=== PATIENT | female | born 1935 | race Caucasian/White ===

== ENCOUNTER 2017-09-15 10:55 | Inpatient (IN) | payer MEDICARE, SELFPAY ==
[2017-09-15] VITALS (21 sets, daily range): BP systolic 90–149; BP diastolic 47–94; PULSE 65–106; RESP 17–28; TEMP 36.7–38.5; O2SAT 81–99; BMI 20.5; BMI 20.9; BMI 21.0
--- NOTE | 2017-09-15 11:07 | RAD_ITS ---
STUDY: X-RAY CHEST REASON FOR EXAM: Female, 82 years old. Short of breath TECHNIQUE: Single AP portable view of the chest. COMPARISON: None. FINDINGS: The lungs are hyperexpanded. There are coarsened interstitial markings suggestive of moderate chronic fibrosis. Cannot exclude congestion and pulmonary edema. More focal density seen in the mid left lung measuring 3.6 cm, which could be infiltrate or mass. CT with contrast recommended. No gross effusions. Normal size heart. Normal mediastinum and candis. Normal visualized pulmonary arteries. Normal visualized aortic arch and descending thoracic aorta. Normal visualized thoracic spine. Normal visualized ribs, clavicles, and shoulders. There is no demonstrated abnormality of the visualized soft tissue structures of the upper abdomen. RAD/Chest 1 View (Portable) IMPRESSION: COPD. Interstitial prominence which could be fibrosis and/or congestion/edema. Focal density in the mid left lung which or mass is possible and CT scan with contrast is recommended. Electronically Signed: Nelson Wallace MD at 11:46 EDT , Service support ,
--- NOTE | 2017-09-15 11:08 | EKG12_ITS ---
Test Reason : SOB Blood Pressure : / mmHG Vent. Rate : 076 BPM Atrial Rate : 069 BPM P-R Int : 000 ms QRS Dur : 086 ms QT Int : 380 ms P-R-T Axes : 000 -55 091 degrees QTc Int : 427 ms Atrial fibrillation Left anterior fascicular block Nonspecific ST and T wave abnormality Abnormal ECG Confirmed by SHALINI BURT, RICARDO ([id number]), loan expeditor HALLEY BUI ([id number]) on 09/20/2017 2:12:59 PM Referred By: WILI Confirmed By:RICARDO LOYA MD
--- NOTE | 2017-09-15 11:29 | NURSING ---
NO OLD EKGS
[2017-09-15] MEDS: Ipratropium/Albuterol Sulfate 3 ML AMPUL.NEB INHALATION ×3 (11:30→23:28)
[2017-09-15 11:51] LABS: Absolute Lymphocyte Count 0.37 X10^3/ul (0.83-4.51); Absolute Neutrophil Count 3.3 X10^3/uL (2.0-7.7); Basophil# 0.03 X10^3/uL; Basophil% 0.7 % (0-1); Eosinophil# 0.01 X10^3/uL; Eosinophils% 0.2 % (0-5); Hematocrit 26.7 % (37-47); Hemoglobin 8.5 g/dl (12.0-15.0); Lymphocyte # 0.37 X10^3/ul (4.0); Lymphocyte % 8.5 % (19-41); Mean Corp Hgb Conc 31.8 g/gl (32-36); Mean Corpuscular Hgb 33.3 pg (27.0-32.0); Mean Corpuscular Volume 104.7 fL (81-99); Mean Platelet Vol. 11.6 fl (6.2-12.0); Monocyte# 0.59 X10^3/uL; Monocyte% 13.6 % (0-10); Neutrophil # 3.29 X10^3/uL (2.7-7.7); Neutrophil % 76.1 % (47-70); Platelet Count 86 K/mm3 (150-450); RBC Distribution Width CV 23.4 % (11.6-14.6); RBC Distribution Width SD 81.8 fl (35.1-43.9); Red Blood Count 2.55 M/mm3 (4.2-5.4); White Blood Count 4.3 K/mm3 (4.4-11.0)
[2017-09-15 11:52] LABS: Differential Indicated SCAN CRITERIA MET; POSITIVE COUNT NO; POSITIVE DIFFERENTIAL YES; POSITIVE MORPHOLOGY YES
[2017-09-15 12:09] LABS: Anion Gap 7 (5-15); BUN 19 mg/dL (7-18); BUN/Creat Ratio 21.8 RATIO (10-20); Calcium,Total 8.1 mg/dL (8.5-10.1); Chloride 106 mmol/L (98-107); Creatinine, Serum 0.87 mg/dL (0.55-1.02); EST Glomerular Filtration Rate 66 mL/min (>60); Est Glom Filt Rate - Afr Amer 80 mL/min (>60); Estimated Creatinine Clearance 45.96 ml/min; Glucose 121 mg/dL (74-106); Potassium 4.3 mmol/L (3.5-5.1); Sodium Level 139 mmol/L (136-145)
--- NOTE | 2017-09-15 12:11 | CT_ITS ---
STUDY: CTA CHEST REASON FOR EXAM: Female, 82 years old. Dyspnea RADIATION DOSAGE (If Supplied By Facility): CTDIvol = ( 8.78 ) mGy, DLP = ( 188.14 ) mGycm TECHNIQUE: The examination was performed with the intravenous administration of 75 ml of Isovue 370 contrast material. Post-processing of the angiographic images was performed, with multiplanar reformation and 3D reconstruction. Individualized dose optimization techniques were used for this CT. COMPARISON: None. FINDINGS: Normal enhancement of the main pulmonary artery and right and left pulmonary arteries. Normal enhancement of the bilateral peripheral pulmonary arteries. There is no demonstrated pulmonary embolism. Normal thoracic aorta and visualized great vessels. There is no demonstrated aortic dissection. There is moderate cardiomegaly. There are calcifications of the coronary arteries. Normal mediastinum. Normal hilar regions. Normal visualized trachea and bronchi. 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 There is atelectasis and possibly infiltrate in the right lower lobe. There is infiltrate or mass in the right upper lobe just beyond the hilum, approximately 4.7 cm. Small to moderate right pleural effusion. Trace left pleural effusion. Normal chest wall structures. Normal osseous structures. Normal visualized upper abdomen. CT/CTA Chest W/WO Contrast IMPRESSION: No evidence for PE. Severe fibrotic COPD. [id number] right pleural effusion. Probable infiltrate in the right lung base in the mid left lung. Cannot exclude mass in the mid left lung. Electronically Signed: Nelson Wallace MD at 13:21 EDT , Service support ,
[2017-09-15 12:12] LABS: Anisocytosis 2+; Macrocytosis 2+; Polychromasia 1+
[2017-09-15] MEDS: 0.9% Normal Saline 1,000 ML 1000 ML IV (12:18)
[2017-09-15 12:26] LABS: BNP,B-Type NATRIURETIC PEPTIDE 409.4 pg/mL (0-100)
[2017-09-15] MEDS: Piperacil/Tazobactam 4.5 GM in NS100 MBP IV (13:20)
--- NOTE | 2017-09-15 14:02 | ED.VISSUMM ---
- ER Visit Summary Date of Service: 09/15/17 Chief Complaint: [Shortness of breath] History of Present Illness: The patient is a 82 F [presents to the emergency department with complaint of shortness of breath that started yesterday. Patient's had a cough for about a week however. Patient drove yesterday for 12 hours from [place] to visit family up here. Patient over the last several months has had multiple admissions for lung infections. Patient also has had some rectal bleeding and had colonoscopy about 4 weeks ago that showed AVMs however they were not bleeding at that time. Patient last week had 1 unit of packed red cells transfused as well. Patient's had fever at home up to 102. Patient has a history of COPD, coronary artery disease, CHF, myelodysplastic syndrome, and pneumonia.] Physical Examination: [HEENT-PERRLA, EOMI. Cranial nerves II through XII grossly intact. TMs clear. Mucous membranes moist. No adenopathy. Cardiovascular-regular rate and rhythm without murmur or ectopy Lungs- decreased breath sounds bilaterally with rhonchi and wheezing throughout. Patient has tachypnea. No accessory muscle use or retractions. Abdomen-normoactive bowel sounds, soft, nontender, no rebound or rigidity, no peritoneal signs. Extremities-intact ?4, normal range of motion, normal pulses, atraumatic] Test Results: [EKG obtained showed atrial fibrillation with a ventricular rate of 76 bpm. Patient had some nonspecific ST changes. CBC with differential showed a white count of 4.3, heme globin 8.5, hematocrit 27, platelets 86. Chemistries unremarkable. Troponin was 0.06. Chest x-ray showed focal density mid left lung and recommended obtaining CT scan with IV contrast to evaluate further. CT scan of the chest showed no evidence for PE, severe COPD, moderate right pleural effusion, infiltrate right lung as well as left midlung. Patient was noted to have a 4.7 cm mass in the left lung.] Emergency Department Course and Treatment: [Patient had blood cultures ordered and patient was started on Zosyn and vancomycin. Patient was given albuterol aerosols.] Treatment Plan: [Admit] Disposition: [Admit] Impression: [Healthcare acquired pneumonia] Pleural effusion Pancytopenia Lung mass This note was generated with [employer] dictation software. It may contain incorrect words, spelling, and punctuation that were not noted in review of the chart prior to signing ED Disposition - Plan for ED Patient: Chief Complaint: Shortness of Breath Referrals: [facility] Doctor,Out of [Primary Care Provider] -
--- NOTE | 2017-09-15 14:36 | NURSING ---
129 HCAP WITH LEFT LUNG MASS, MDS ALANNA
--- NOTE | 2017-09-15 15:48 | PCM.HP.STD ---
<Nora Srivastava - Last Filed: 09/15/17 16:52> Problem List (1) MDS (myelodysplastic syndrome) Status: Chronic (2) COPD (chronic obstructive pulmonary disease) Status: Chronic (3) CAD (coronary artery disease) Status: Chronic (4) HTN (hypertension) Status: Chronic (5) HLD (hyperlipidemia) Status: Chronic (6) GI bleed Status: Resolved (7) Anemia Status: Chronic (8) Atrial fibrillation Status: Chronic Qualifiers: Atrial fibrillation type: paroxysmal Qualified Code(s): I48.0 - Paroxysmal atrial fibrillation (9) CHF (congestive heart failure) Status: Chronic Qualifiers: Heart failure type: systolic History of Present Illness Date of Admission: 09/15/17 Chief Complaint: Shortness of breath, cough, fever, weakness. The patient is a 82 year old F who presents to the emergency room with shortness of breath, cough, fever, weakness. Patient states she has not felt well for the past week and has had ongoing cough and increased shortness of breath. She complains of increased shortness of breath while lying flat. Patient states her cough is productive of green sputum. She reports a fever last night of greater than 102. She denies increased swelling or recent weight gain. Patient is visiting from [place]. Family states patient has had recurrent pneumonia/respiratory failure for the past few months. They also report patient has had 8 units of blood products since June 2017 due to GI bleed secondary to AVMs with underlying myelodysplastic syndrome. Patient states she was noted to have abnormal findings on CT of chest at hospital facility in [place]. She is unaware of the specific details. She wears continuous supplemental oxygen at home. She has a past medical history of COPD, CAD status post stent ?4, MDS, hypertension, hyperlipidemia, paroxysmal atrial fibrillation, CHF. Past Medical History Past Medical History (Chronic Problems): Chronic Problems MDS (myelodysplastic syndrome) (Chronic) COPD (chronic obstructive pulmonary disease) (Chronic) CAD (coronary artery disease) (Chronic) HTN (hypertension) (Chronic) HLD (hyperlipidemia) (Chronic) Anemia (Chronic) Atrial fibrillation (Chronic) CHF (congestive heart failure) (Chronic) Allergies TAPE Allergy (Uncoded 09/15/17 10:56) Unknown Home Medications: Ambulatory Orders Medication Instructions Recorded Albuterol Inhaler [Ventolin Hfa 1 puff INHALATION Q6H PRN PRN 09/15/17 (SP)] Ferrous Sulfate 324 mg PO DAILY 09/15/17 Furosemide [Lasix] 20 mg PO DAILY 09/15/17 Ipratropium/Albuterol Respimat 1 puff INHALATION BID 09/15/17 [Combivent Respimat Inhal [place]] Losartan Potassium 100 mg PO DAILY 09/15/17 Metoprolol Succinate 50 mg PO DAILY 09/15/17 Rosuvastatin Calcium [Crestor] 10 mg PO QODAY 09/15/17 Tiotropium Br/Olodaterol HCl 2 puff IH DAILY 09/15/17 [Stiolto Respimat Inhal [place]] Surgical History: - - Back surgery at the age of 28 Psychiatric History: No pertinent psych hx 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 Lives: With Family Smoking Status: Former smoker Alcohol: Rare Drugs: None - *Family History Maternal History Items: Heart Disease Paternal History Items: - - Alcohol abuse Review of Systems Constitutional: Reports: Chills, Fever, Weakness, Fatigue HEENT: Denies: Head Aches, Sinus Congestion, Sinus Drainage Cardiovascular: Denies: Chest Pain, Edema, Palpitations, Syncope Respiratory: Reports: Cough, Shortness of Breath, Sputum production Gastrointestinal: Denies: Abdominal Pain, Nausea, Vomiting Genitourinary: Denies: Dysuria Musculoskeletal: Denies: Joint Pain, Joint Tenderness Skin: Denies: Rash, Wounds Neurological: Denies: Numbness, Tingling, Focal weakness Psychiatric: Denies: Anxiety, Depression, Homicidal Ideations, Suicidal Ideations Hematologic/ Lymphatic: Denies: Easy Bruising, Easy Bleeding VTE Information - Inpt Only VTE Present on Admission: No VTE Mechan Device Prophylaxis: None VTE Pharm Prophylaxis ordered?: Yes - Physical Exam General: Alert, Oriented x3, Cooperative HEENT: Atraumatic, PERRLA, EOMI, Normocephalic Neck: Supple, No JVD, Negative Carotid Bruits Lungs: Diminished, Rhonchi, Tachypneic, Wheezes Cardiovascular: Normal S1, Normal S2, No murmurs, - - A.fib Abdomen: Bowel Sounds Present, Soft, Non Tender, Non-Distended Extremities: No clubbing, No cyanosis, No edema, Capillary Refill Less than 3 Seconds Skin: No rashes, No breakdown, - - Chronic skin changes bilateral lower extremities. Musculoskeletal: No Tenderness to Palpation of Joints or Extremities Neurological: Cranial nerves II-XII grossly intact, Neuro grossly intact Psych/Mental Status: Normal Affect, Appropriate Vital Signs Temp Pulse Resp BP Pulse Ox 100.0 F H 89 19 H 127/76 H 95 09/15/17 12:29 09/15/17 15:34 09/15/17 14:52 09/15/17 14:52 09/15/17 14:52 Oxygen Flow Rate (L/min) 4 Oxygen Delivery Method Nasal Cannula Assessment/Plan 1. Acute on chronic hypoxic respiratory failure-multifactorial secondary to acute on chronic CHF and healthcare acquired pneumonia. Patient notes hospitalization for recurrent pneumonia and respiratory failure over the past few months in [place] where patient resides. Patient chronically wears supplemental oxygen. Continue supplemental oxygen to maintain O2 at or above 90%. 2. Healthcare acquired pneumonia-negative for influenza. Blood cultures pending. Sputum culture sent, pending. Obtain urine for strep and Legionella. Patient was started on Zosyn and vancomycin in ER, continue. Albuterol and DuoNeb aerosols. IS/PEP. Mucinex 1200 mg p.o. twice daily. Tylenol as needed for fever. CTA of chest showed no evidence of PE. Severe fibrotic COPD. Small to moderate right pleural effusion. Probable infiltrate in the right lung base and the mid left lung. Infiltrate or mass noted in the right upper lobe measuring approximately 4.7 cm. Patient states a lung mass has been discussed with her at outside facility, however she is unaware of details. She was to continue follow-up with repeat imaging. 3. Acute on chronic CHF-unknown what subtype. Request records from facility in [place]. Patient believes her most recent EF was 45%. CT of chest as noted above. BNP on admission 409. Begin IV Lasix 40 mg twice daily. Strict I&O. Daily weight. 4. Paroxysmal atrial fibrillation-EKG in emergency room showed atrial fibrillation with a rate of 76. Patient reports she has history of atrial fibrillation. Not on anticoagulation due to history of GI bleed secondary to AVM. Continue metoprolol. Rate controlled. 5. COPD-no acute exacerbation. Albuterol and DuoNeb aerosols. Continue supplemental oxygen to maintain O2 at or above 90%. 6. CAD-continue statin, metoprolol. Not on aspirin given recent GI bleed. Troponin 0.06 on admission. 7. Hypertension-stable, continue home regimen of metoprolol, losartan, Lasix. 8. Hyperlipidemia-continue statin. 9. Chronic iron deficiency anemia-with recent blood loss anemia secondary to AVM. Colonoscopy in August at facility in [place] was reported to show AVM. Patient required blood transfusion at that time. She reported small amount of rectal bleeding the past few days. Continue to monitor. Monitor CBC. Continue home iron supplementation. 10. Pancytopenia secondary to myelodysplastic syndrome DVT prophylaxis-SCDs. Pharmacologic prophylaxis contraindicated due to recent GI bleed. Code status: DNR-CCA, patient states no CPR This patient was seen by ADINA AnthonyC under the supervision of Dr. Horton. <Yaron Horton - Last Filed: 09/15/17 17:48> History of Present Illness Seen and examined. She has known history of COPD, chronic fibrosis lung with scarring, right lung mass and congestive heart failure, coronary artery disease status post stent and MDS with pancytopenia. She lives in [place] and visiting here. She has clinical symptoms of pneumonia including high fever last night, cough with sputum and tachypnea and shortness of breath for about 1 week. About a week ago she also received blood transfusion. She has a history of A. fib but she is not on anticoagulant because of history of MDS. [] Past Medical History Allergies TAPE Allergy (Uncoded 09/15/17 10:56) Unknown Review of Systems Constitutional: Reports: Chills, Fever - Physical Exam Lungs: Diminished, Rhonchi, Short of Breath, Tachypneic, Using Accessory Muscles, Wheezes Vital Signs Temp Pulse Resp BP Pulse Ox 101.3 F H 82 28 H 124/63 H 91 09/15/17 16:26 09/15/17 16:26 09/15/17 16:26 09/15/17 16:26 09/15/17 16:26 Oxygen Flow Rate (L/min) 4 Oxygen Delivery Method Nasal Cannula Weight: 129 lb 13.636 oz Body Mass Index (BMI) 20.9 Laboratory Tests Past 24 Hrs 09/15/17 09/15/17 09/15/17 15:58 15:58 17:25 PT 16.3 H INR 1.3 APTT 38.5 H Lactic Acid 1.2 Troponin I Pending Assessment/Plan This patient was seen in conjunction with Nora LEVY. I have independently interviewed and examined the patient and reviewed pertinent history, examination findings, laboratory and plan of management. I have reviewed the note and agree with the documented findings with the few additional points. In brief, patient is admitted for acute on chronic hypoxic respiratory failure, multifactorial secondary to COPD, chronic fibrosis and lung scarring, atelectasis bilateral pleural effusion and probably exacerbated by healthcare acid pneumonia. She has also been told in the past that she has a right lung mass and as per her, the mass is stable. She is on IV vancomycin and Zosyn. We will try to get her medical record from [place]. She is DNR CC arrest. I have discussed my assessment with [employer] MACHINE [employer]PA[employer] SUPERVIS[employer]ora and orders have been reviewed. Code Visit Inpatient E&M: 84364 Init Hosp L3
--- NOTE | 2017-09-15 15:57 | HP.PCM_ITS ---
<Nora Srivastava - Last Filed: 09/15/17 16:52> Problem List (1) MDS (myelodysplastic syndrome) Status: Chronic (2) COPD (chronic obstructive pulmonary disease) Status: Chronic (3) CAD (coronary artery disease) Status: Chronic (4) HTN (hypertension) Status: Chronic (5) HLD (hyperlipidemia) Status: Chronic (6) GI bleed Status: Resolved (7) Anemia Status: Chronic (8) Atrial fibrillation Status: Chronic Qualifiers: Atrial fibrillation type: paroxysmal Qualified Code(s): I48.0 - Paroxysmal atrial fibrillation (9) CHF (congestive heart failure) Status: Chronic Qualifiers: Heart failure type: systolic History of Present Illness Date of Admission: 09/15/17 Chief Complaint: Shortness of breath, cough, fever, weakness. The patient is a 82 year old F who presents to the emergency room with shortness of breath, cough, fever, weakness. Patient states she has not felt well for the past week and has had ongoing cough and increased shortness of breath. She complains of increased shortness of breath while lying flat. Patient states her cough is productive of green sputum. She reports a fever last night of greater than 102. She denies increased swelling or recent weight gain. Patient is visiting from [place]. Family states patient has had recurrent pneumonia/respiratory failure for the past few months. They also report patient has had 8 units of blood products since June 2017 due to GI bleed secondary to AVMs with underlying myelodysplastic syndrome. Patient states she was noted to have abnormal findings on CT of chest at hospital facility in [place]. She is unaware of the specific details. She wears continuous supplemental oxygen at home. She has a past medical history of COPD , CAD status post stent ?4, MDS, hypertension, hyperlipidemia, paroxysmal atrial fibrillation, CHF. Past Medical History Past Medical History (Chronic Problems): Chronic Problems MDS (myelodysplastic syndrome) (Chronic) COPD (chronic obstructive pulmonary disease) (Chronic) CAD (coronary artery disease) (Chronic) HTN (hypertension) (Chronic) HLD (hyperlipidemia) (Chronic) Anemia (Chronic) Atrial fibrillation (Chronic) CHF (congestive heart failure) (Chronic) Allergies TAPE Allergy (Uncoded 09/15/17 10:56) Unknown Home Medications: Ambulatory Orders Medication Instructions Recorded Albuterol Inhaler [Ventolin Hfa 1 puff INHALATION Q6H PRN PRN 09/15/17 (SP)] Ferrous Sulfate 324 mg PO DAILY 09/15/17 Furosemide [Lasix] 20 mg PO DAILY 09/15/17 Ipratropium/Albuterol Respimat 1 puff INHALATION BID 09/15/17 [Combivent Respimat Inhal [place]] Losartan Potassium 100 mg PO DAILY 09/15/17 Metoprolol Succinate 50 mg PO DAILY 09/15/17 Rosuvastatin Calcium [Crestor] 10 mg PO QODAY 09/15/17 Tiotropium Br/Olodaterol HCl 2 puff IH DAILY 09/15/17 [Stiolto Respimat Inhal [place]] Surgical History: - - Back surgery at the age of 28 Psychiatric History: No pertinent psych hx 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 PROGRAM MANAGER history Lives: With Family Smoking Status: Former smoker Alcohol: Rare Drugs: None - *Family History Maternal History Items: Heart Disease Paternal History Items: - - Alcohol abuse Review of Systems Constitutional: Reports: Chills, Fever, Weakness, Fatigue HEENT: Denies: Head Aches, Sinus Congestion, Sinus Drainage Cardiovascular: Denies: Chest Pain, Edema, Palpitations, Syncope Respiratory: Reports: Cough, Shortness of Breath, Sputum production Gastrointestinal: Denies: Abdominal Pain, Nausea, Vomiting Genitourinary: Denies: Dysuria Musculoskeletal: Denies: Joint Pain, Joint Tenderness Skin: Denies: Rash, Wounds Neurological: Denies: Numbness, Tingling, Focal weakness Psychiatric: Denies: Anxiety, Depression, Homicidal Ideations, Suicidal Ideations Hematologic/ Lymphatic: Denies: Easy Bruising, Easy Bleeding VTE Information - Inpt Only VTE Present on Admission: No VTE Mechan Device Prophylaxis: None VTE Pharm Prophylaxis ordered?: Yes - Physical Exam General: Alert, Oriented x3, Cooperative HEENT: Atraumatic, PERRLA, EOMI, Normocephalic Neck: Supple, No JVD, Negative Carotid Bruits Lungs: Diminished, Rhonchi, Tachypneic, Wheezes Cardiovascular: Normal S1, Normal S2, No murmurs, - - A.fib Abdomen: Bowel Sounds Present, Soft, Non Tender, Non-Distended Extremities: No clubbing, No cyanosis, No edema, Capillary Refill Less than 3 Seconds Skin: No rashes, No breakdown, - - Chronic skin changes bilateral lower extremities. Musculoskeletal: No Tenderness to Palpation of Joints or Extremities Neurological: Cranial nerves II-XII grossly intact, Neuro grossly intact Psych/Mental Status: Normal Affect, Appropriate Vital Signs Temp Pulse Resp BP Pulse Ox 100.0 F H 89 19 H 127/76 H 95 09/15/17 12:29 09/15/17 15:34 09/15/17 14:52 09/15/17 14:52 09/15/17 14:52 Oxygen Flow Rate (L/min) 4 Oxygen Delivery Method Nasal Cannula Assessment/Plan 1. Acute on chronic hypoxic respiratory failure-multifactorial secondary to acute on chronic CHF and healthcare acquired pneumonia. Patient notes hospitalization for recurrent pneumonia and respiratory failure over the past few months in [place] where patient resides. Patient chronically wears supplemental oxygen. Continue supplemental oxygen to maintain O2 at or above 90 %. 2. Healthcare acquired pneumonia-negative for influenza. Blood cultures pending. Sputum culture sent, pending. Obtain urine for strep and Legionella. Patient was started on Zosyn and vancomycin in ER, continue. Albuterol and DuoNeb aerosols. IS/PEP. Mucinex 1200 mg p.o. twice daily. Tylenol as needed for fever. CTA of chest showed no evidence of PE. Severe fibrotic COPD. Small to moderate right pleural effusion. Probable infiltrate in the right lung base and the mid left lung. Infiltrate or mass noted in the right upper lobe measuring approximately 4.7 cm. Patient states a lung mass has been discussed with her at outside facility, however she is unaware of details. She was to continue follow-up with repeat imaging. 3. Acute on chronic CHF-unknown what subtype. Request records from facility in [place]. Patient believes her most recent EF was 45%. CT of chest as noted above. BNP on admission 409. Begin IV Lasix 40 mg twice daily. Strict I&O. Daily weight. 4. Paroxysmal atrial fibrillation-EKG in emergency room showed atrial fibrillation with a rate of 76. Patient reports she has history of atrial fibrillation. Not on anticoagulation due to history of GI bleed secondary to AVM. Continue metoprolol. Rate controlled. 5. COPD-no acute exacerbation. Albuterol and DuoNeb aerosols. Continue supplemental oxygen to maintain O2 at or above 90%. 6. CAD-continue statin, metoprolol. Not on aspirin given recent GI bleed. Troponin 0.06 on admission. 7. Hypertension-stable, continue home regimen of metoprolol, losartan, Lasix. 8. Hyperlipidemia-continue statin. 9. Chronic iron deficiency anemia-with recent blood loss anemia secondary to AVM. Colonoscopy in August at facility in [place] was reported to show AVM. Patient required blood transfusion at that time. She reported small amount of rectal bleeding the past few days. Continue to monitor. Monitor CBC. Continue home iron supplementation. 10. Pancytopenia secondary to myelodysplastic syndrome DVT prophylaxis-SCDs. Pharmacologic prophylaxis contraindicated due to recent GI bleed. Code status: DNR-CCA, patient states no CPR This patient was seen by ADINA AnthonyC under the supervision of Dr. Horton. <Yaron Horton - Last Filed: 09/15/17 17:48> History of Present Illness Seen and examined. She has known history of COPD, chronic fibrosis lung with scarring, right lung mass and congestive heart failure, coronary artery disease status post stent and MDS with pancytopenia. She lives in [place] and visiting here. She has clinical symptoms of pneumonia including high fever last night, cough with sputum and tachypnea and shortness of breath for about 1 week. About a week ago she also received blood transfusion. She has a history of A. fib but she is not on anticoagulant because of history of MDS. [] Past Medical History Allergies TAPE Allergy (Uncoded 09/15/17 10:56) Unknown Review of Systems Constitutional: Reports: Chills, Fever - Physical Exam Lungs: Diminished, Rhonchi, Short of Breath, Tachypneic, Using Accessory Muscles , Wheezes Vital Signs Temp Pulse Resp BP Pulse Ox 101.3 F H 82 28 H 124/63 H 91 09/15/17 16:26 09/15/17 16:26 09/15/17 16:26 09/15/17 16:26 09/15/17 16:26 Oxygen Flow Rate (L/min) 4 Oxygen Delivery Method Nasal Cannula Weight: 129 lb 13.636 oz Body Mass Index (BMI) 20.9 Laboratory Tests Past 24 Hrs 09/15/17 09/15/17 09/15/17 15:58 15:58 17:25 PT 16.3 H INR 1.3 APTT 38.5 H Lactic Acid 1.2 Troponin I Pending Assessment/Plan This patient was seen in conjunction with Nora LEVY. I have independently interviewed and examined the patient and reviewed pertinent history, examination findings, laboratory and plan of management. I have reviewed the note and agree with the documented findings with the few additional points. In brief, patient is admitted for acute on chronic hypoxic respiratory failure, multifactorial secondary to COPD, chronic fibrosis and lung scarring, atelectasis bilateral pleural effusion and probably exacerbated by healthcare acid pneumonia. She has also been told in the past that she has a right lung mass and as per her, the mass is stable. She is on IV vancomycin and Zosyn. We will try to get her medical record from [place]. She is DNR CC arrest. I have discussed my assessment with SERVICE TEAM LEADERNora and orders have been reviewed. Code Visit Inpatient E&M: 25599 Init Hosp L3
[2017-09-15 16:15] LABS: International Normalized Ratio 1.3; Prothrombin Time (Protime)PT. 16.3 SECONDS (11.7-14.9)
[2017-09-15 16:16] LABS: Partial Thromboplast Time 38.5 Seconds (24.1-36.2)
[2017-09-15 16:43] LABS: Lactic Acid 1.2 mmol/L (0.4-2.0)
[2017-09-15] MEDS: Acetaminophen 325 MG Tablet 650 MG PO (17:01)
[2017-09-15] MEDS: Ferrous Sulfate 325 MG Tablet PO (17:32)
[2017-09-15] MEDS: Furosemide 40 MG/4 ML Vial IV (17:32)
[2017-09-15] MEDS: guaiFENesin 600 MG Tablet 1200 MG PO (18:19)
[2017-09-15] MEDS: MELATONIN 10 MG TABLET PO (21:53)
[2017-09-15 22:34] LABS: Magnesium 1.9 mg/dL (1.6-2.6)
[2017-09-16] VITALS (17 sets, daily range): BP systolic 103–135; BP diastolic 47–73; PULSE 62–92; RESP 16–20; TEMP 36.4–36.8; O2SAT 94–100
[2017-09-16 03:03] LABS: Hematocrit 24.7 % (37-47); Hemoglobin 7.8 g/dl (12.0-15.0); Mean Corp Hgb Conc 31.6 g/gl (32-36); Mean Corpuscular Hgb 33.3 pg (27.0-32.0); Mean Corpuscular Volume 105.6 fL (81-99); Mean Platelet Vol. 11.6 fl (6.2-12.0); RBC Distribution Width CV 23.6 % (11.6-14.6); RBC Distribution Width SD 85.6 fl (35.1-43.9); Red Blood Count 2.34 M/mm3 (4.2-5.4); White Blood Count 3.6 K/mm3 (4.4-11.0)
[2017-09-16 03:12] LABS: Platelet Count 44 K/mm3 (150-450); Scan Indicated on CBC? Y/N YES- FLAGS NOTED
[2017-09-16 03:19] LABS: Anion Gap 6 (5-15); BUN 16 mg/dL (7-18); BUN/Creat Ratio 18.6 RATIO (10-20); Calcium,Total 7.8 mg/dL (8.5-10.1); Chloride 104 mmol/L (98-107); Creatinine, Serum 0.86 mg/dL (0.55-1.02); EST Glomerular Filtration Rate 67 mL/min (>60); Est Glom Filt Rate - Afr Amer 81 mL/min (>60); Estimated Creatinine Clearance 46.09 ml/min; Glucose 97 mg/dL (74-106); Potassium 3.7 mmol/L (3.5-5.1); Sodium Level 137 mmol/L (136-145)
[2017-09-16] MEDS: Acetaminophen 325 MG Tablet 650 MG PO (03:27)
[2017-09-16 03:39] LABS: Differential Comment SCAN
[2017-09-16] MEDS: Ipratropium/Albuterol Sulfate 3 ML AMPUL.NEB INHALATION ×4 (07:39→23:40)
[2017-09-16] MEDS: Furosemide 40 MG/4 ML Vial IV ×2 (09:19→18:41)
[2017-09-16] MEDS: Famotidine 20 MG Tablet PO ×2 (09:20→22:15)
[2017-09-16] MEDS: guaiFENesin 600 MG Tablet 1200 MG PO ×2 (09:20→22:15)
[2017-09-16] MEDS: Ferrous Sulfate 325 MG Tablet PO (09:23)
[2017-09-16] MEDS: 0.9% NaCl Peripheral Flush Adult/Peds IV ×3 (09:24→18:41)
[2017-09-16] MEDS: Metoprolol(XL)Succ 50 MG Tablet PO (11:18)
--- NOTE | 2017-09-16 13:05 | PCM.RX.CS ---
Consult Pharmacy has been consulted to manage selected antiobiotic: Vancomycin Type of Consult: Follow-up Suspected Infection: Pneumonia Prior Doses of Antibiotics Received/Current Regimen: VANCOMYCIN 1000MG IV X1 IN ED @1447 Labs: Sodium 137 mmol/L (136-145) 09/16/17 02:23 Potassium 3.7 mmol/L (3.5-5.1) 09/16/17 02:23 Chloride 104 mmol/L (98-107) 09/16/17 02:23 Carbon Dioxide 27.0 mmol/L (21.0-32.0) 09/16/17 02:23 Anion Gap 6 (5-15) 09/16/17 02:23 BUN 16 mg/dL (7-18) 09/16/17 02:23 Creatinine 0.86 mg/dL (0.55-1.02) 09/16/17 02:23 Est GFR (MDRD) Af Amer 81 mL/min (>60) 09/16/17 02:23 Est GFR (MDRD) Non-Af 67 mL/min (>60) 09/16/17 02:23 BUN/Creatinine Ratio 18.6 RATIO (10-20) 09/16/17 02:23 Glucose 97 mg/dL (74-106) 09/16/17 02:23 Microbiology: Microbiology 09/15/17 19:20 Urine, Clean Catch Legionella Antigen - Final 09/15/17 19:20 Urine, Clean Catch Streptococcus pneumoniae Antigen (M - Final Weight used for dosin.9 kg Estimated Creatinine Clearance: 46ML/MIN Goal Trough: 15-20 mcg/mL Pharmacy Plan for Drug Dosing: Pharmacy Service will continue to monitor and adjust dosing as required Pharmacy to manage vancomycin per consult for treatment of HCAP. The patient was started on vancomycin yesterday, and was placed on 1g IV Q24hrs. The patient got a 1g dose 08/15/17 @ 1819 (5hrs from ED dose). This sql report writer ordered a random vancomycin level prior to the next dose due to assess how the patient is accumulating the vancomycin. Pending this level, adjustments can be made to the regimen to target a trough of 15-20. PLAN/RECOMMENDATIONS 1. Continue vancomycin 1000mg IV Q24hrs 2. Random trough 09/16/17 @1730 to assess accumulation rate of this patient 3. Pharmacy will continue to monitor and make changes as appropriate
--- NOTE | 2017-09-16 13:25 | CASEMGMT ---
Face to Face with patient for initial transition planning/care coordination assessment. ABBEY SOLIS introduced self and role at [facility], pt voices understanding and consents to assessment at this time. Pt is sitting up on edge of bed in no distress at this time. Pt is A/O x4 at this time and answers all questions appopriately at this time. Care providers, pharmacy, and demographics verified. See attached link. Pt voices no further questions/concerns at this time. Advised pt to ask for CM if any further questions/concerns/needs arise, voices understanding. CM to follow for any further discharge planning/needs. PLAN: [place] ABBEY SOLIS
[2017-09-16 19:04] LABS: Vancomycin, Random Level 13.7 ug/mL (0.0-15.0)
--- NOTE | 2017-09-16 19:52 | PCM.PROGNOTE ---
Subjective: she is feeling better today. Hypotension noted. Oxygen saturation stable with O2 via NC. - Physical Exam General: Alert, Oriented x3 HEENT: Atraumatic, PERRLA, Normocephalic Oral: Moist Mucosa, No Gingival or Mucosal Lesions/ Ulcerations, Dry Mucosa Neck: Supple, No JVD, Negative Carotid Bruits, Negative Hepatojugular Reflux, No Nodes, No Nuchal Rigidity Lungs: No wheeze, No rales, Diminished Cardiovascular: Regular rate, Regular Rhythm, Normal S1, Normal S2, No murmurs, No Ectopic Activity Abdomen: Bowel Sounds Present, Soft, Non Tender, Non-Distended, No Hepato-splenomegaly Extremities: No clubbing, No cyanosis, No edema Skin: No rashes, No breakdown Musculoskeletal: No Tenderness to Palpation of Joints or Extremities, No Muscle Wasting Lymphatic: No Cervical, Supraclavicular, or Inguinal Adenopathy Neurological: Cranial nerves II-XII grossly intact, Neuro grossly intact Psych/Mental Status: Normal Affect Vital Signs Temp Pulse Resp BP Pulse Ox 97.5 F L 67 18 111/68 100 09/16/17 15:38 09/16/17 19:48 09/16/17 19:48 09/16/17 15:38 09/16/17 15:38 Oxygen Flow Rate (L/min) 3 Oxygen Delivery Method Nasal Cannula Weight: 128 lb 1.417 oz Body Mass Index (BMI) 20.9 Intake and Output for Last 24 Hours 09/14/17 09/15/17 09/16/17 23:59 23:59 23:59 Intake Total 904 / 904 738 / 738 Output Total 925 / 925 Balance 904 / 904 -187 / -187 Microbiology Past 72 Hours 09/15/17 19:20 Legionella Antigen - Final Urine, Clean Catch 09/15/17 19:20 Streptococcus pneumoniae Antigen (M - Final Urine, Clean Catch Laboratory Tests Past 24 Hrs 09/15/17 09/15/17 09/16/17 21:42 21:42 02:23 WBC 3.6 L RBC 2.34 L Hgb 7.8 L Hct 24.7 L MCV 105.6 H MCH 33.3 H MCHC 31.6 L RDW 23.6 H RDW Differential 85.6 H Plt Count 44 L* MPV 11.6 Differential Comment SCAN Diff Path Review May foll Sodium Potassium Chloride Carbon Dioxide Anion Gap BUN Creatinine Estim Creat Clear Calc Est GFR (MDRD) Af Amer Est GFR (MDRD) Non-Af BUN/Creatinine Ratio Glucose Calcium Magnesium 1.9 Troponin I 0.10 H Random Vancomycin 09/16/17 09/16/17 09/16/17 02:23 02:23 17:45 WBC RBC Hgb Hct MCV MCH MCHC RDW RDW Differential Plt Count MPV Differential Comment Diff Path Review Sodium 137 Potassium 3.7 Chloride 104 Carbon Dioxide 27.0 Anion Gap 6 BUN 16 Creatinine 0.86 Estim Creat Clear Calc 46.09 Est GFR (MDRD) Af Amer 81 Est GFR (MDRD) Non-Af 67 BUN/Creatinine Ratio 18.6 Glucose 97 Calcium 7.8 L Magnesium Troponin I 0.09 H Random Vancomycin 13.7 Diagnostic Data Chest X-Ray 09/15/17 11:07 IMPRESSION: COPD. Interstitial prominence which could be fibrosis and/or congestion/edema. Focal density in the mid left lung which or mass is possible and CT scan with contrast is recommended. Electronically Signed: Nelson Wallace MD at 11:46 EDT , Service support , Chest CTA 09/15/17 12:11 IMPRESSION: No evidence for PE. Severe fibrotic COPD. [id number] right pleural effusion. Probable infiltrate in the right lung base in the mid left lung. Cannot exclude mass in the mid left lung. Electronically Signed: Nelson Wallace MD at 13:21 EDT , Service support , Medical Necessity - Tobacco Use Smoking Status: Former smoker Tobacco Use: Cigarettes Assessment/Plan Patient is an 82 years old female who was admitted on 09/15/17 for acute on chronic respiratory failure with underling pneumonia, COPD, and CHF. She was having recurrent hospitalization and ED visit for past 3 month with respiratory illness and anemia. She reports that she had multiple transfusion due to myelodysplastic disease. Also, she had pneumonia and upper respiratory infection, presents with fever of 102 this time with green discolored productive cough. She was started on Zosyn and vancomycin empirically, admitted to PCU. She reports that she had CT of chest, which was abnormal in [place] last month. She is not sure if there was instruction for follow up. She denied of any history of cancer in the past. 1. Acute on chronic hypoxic respiratory failure-multifactorial secondary to acute on chronic CHF and healthcare acquired pneumonia. Patient notes hospitalization for recurrent pneumonia and respiratory failure over the past few months in [place] where patient resides. Patient chronically wears supplemental oxygen. Continue supplemental oxygen to maintain O2 at or above 90%. 2. Healthcare acquired pneumonia-negative for influenza. Blood cultures pending. Sputum culture sent, pending. Obtain urine for strep and Legionella. Patient was started on Zosyn and vancomycin in ER, continue. Albuterol and DuoNeb aerosols. IS/PEP. Mucinex 1200 mg p.o. twice daily. Tylenol as needed for fever. CTA of chest showed no evidence of PE. Severe fibrotic COPD. Small to moderate right pleural effusion. Probable infiltrate in the right lung base and the mid left lung. Infiltrate or mass noted in the right upper lobe measuring approximately 4.7 cm. Patient states a lung mass has been discussed with her at outside facility, however she is unaware of details. She was to continue follow-up with repeat imaging. Right mid lung lesion mentioned above is concerning. I had discussed in detail with patient regarding possibility of pathology including malignancy. Record from [place] was reviewed but no mentioning of CT chest. After discussing possible treatment plans, she thought that it would be best to do further work up at home in [place]. If she is more stable, she is planing to go back to home early next week. We sill see how she progress. 3. Acute on chronic CHF-unknown what subtype. Request records from facility in [place]. Patient believes her most recent EF was 45%. CT of chest as noted above. BNP on admission 409. Begin IV Lasix 40 mg twice daily. Strict I&O. Daily weight. 4. Paroxysmal atrial fibrillation-EKG in emergency room showed atrial fibrillation with a rate of 76. Patient reports she has history of atrial fibrillation. Not on anticoagulation due to history of GI bleed secondary to AVM. Continue metoprolol. Rate controlled. 5. COPD-no acute exacerbation. Albuterol and DuoNeb aerosols. Continue supplemental oxygen to maintain O2 at or above 90%. 6. CAD-continue statin, metoprolol. Not on aspirin given recent GI bleed. Troponin 0.06 on admission. 7. Hypertension-stable, continue home regimen of metoprolol, losartan, Lasix. 8. Hyperlipidemia-continue statin. 9. Chronic iron deficiency anemia-with recent blood loss anemia secondary to AVM. Colonoscopy in August at facility in [place] was reported to show AVM. Patient required blood transfusion at that time. She reported small amount of rectal bleeding the past few days. Continue to monitor. Monitor CBC. Continue home iron supplementation. 10. Pancytopenia secondary to myelodysplastic syndrome DVT prophylaxis-SCDs. Pharmacologic prophylaxis contraindicated due to recent GI bleed. Code status: DNR-CCA, patient states no CPR Code Visit Inpatient E&M: 93795 Subs Hosp L3
--- NOTE | 2017-09-16 20:02 | PN_ITS ---
Subjective: she is feeling better today. Hypotension noted. Oxygen saturation stable with O2 via NC. - Physical Exam General: Alert, Oriented x3 HEENT: Atraumatic, PERRLA, Normocephalic Oral: Moist Mucosa, No Gingival or Mucosal Lesions/ Ulcerations, Dry Mucosa Neck: Supple, No JVD, Negative Carotid Bruits, Negative Hepatojugular Reflux, No Nodes, No Nuchal Rigidity Lungs: No wheeze, No rales, Diminished Cardiovascular: Regular rate, Regular Rhythm, Normal S1, Normal S2, No murmurs, No Ectopic Activity Abdomen: Bowel Sounds Present, Soft, Non Tender, Non-Distended, No Hepato- splenomegaly Extremities: No clubbing, No cyanosis, No edema Skin: No rashes, No breakdown Musculoskeletal: No Tenderness to Palpation of Joints or Extremities, No Muscle Wasting Lymphatic: No Cervical, Supraclavicular, or Inguinal Adenopathy Neurological: Cranial nerves II-XII grossly intact, Neuro grossly intact Psych/Mental Status: Normal Affect Vital Signs Temp Pulse Resp BP Pulse Ox 97.5 F L 67 18 111/68 100 09/16/17 15:38 09/16/17 19:48 09/16/17 19:48 09/16/17 15:38 09/16/17 15:38 Oxygen Flow Rate (L/min) 3 Oxygen Delivery Method Nasal Cannula Weight: 128 lb 1.417 oz Body Mass Index (BMI) 20.9 Intake and Output for Last 24 Hours 09/14/17 09/15/17 09/16/17 23:59 23:59 23:59 Intake Total 904 / 904 738 / 738 Output Total 925 / 925 Balance 904 / 904 -187 / -187 Microbiology Past 72 Hours 09/15/17 19:20 Legionella Antigen - Final Urine, Clean Catch 09/15/17 19:20 Streptococcus pneumoniae Antigen (M - Final Urine, Clean Catch Laboratory Tests Past 24 Hrs 09/15/17 09/15/17 09/16/17 21:42 21:42 02:23 WBC 3.6 L RBC 2.34 L Hgb 7.8 L Hct 24.7 L MCV 105.6 H MCH 33.3 H MCHC 31.6 L RDW 23.6 H RDW Differential 85.6 H Plt Count 44 L* MPV 11.6 Differential Comment SCAN Diff Path Review May foll Sodium Potassium Chloride Carbon Dioxide Anion Gap BUN Creatinine Estim Creat Clear Calc Est GFR (MDRD) Af Amer Est GFR (MDRD) Non-Af BUN/Creatinine Ratio Glucose Calcium Magnesium 1.9 Troponin I 0.10 H Random Vancomycin 09/16/17 09/16/17 09/16/17 02:23 02:23 17:45 WBC RBC Hgb Hct MCV MCH MCHC RDW RDW Differential Plt Count MPV Differential Comment Diff Path Review Sodium 137 Potassium 3.7 Chloride 104 Carbon Dioxide 27.0 Anion Gap 6 BUN 16 Creatinine 0.86 Estim Creat Clear Calc 46.09 Est GFR (MDRD) Af Amer 81 Est GFR (MDRD) Non-Af 67 BUN/Creatinine Ratio 18.6 Glucose 97 Calcium 7.8 L Magnesium Troponin I 0.09 H Random Vancomycin 13.7 Diagnostic Data Chest X-Ray 09/15/17 11:07 IMPRESSION: COPD. Interstitial prominence which could be fibrosis and/or congestion/edema. Focal density in the mid left lung which or mass is possible and CT scan with contrast is recommended. Electronically Signed: Nelson Wallace MD at 11:46 EDT , Service support , Chest CTA 09/15/17 12:11 IMPRESSION: No evidence for PE. Severe fibrotic COPD. [id number] right pleural effusion. Probable infiltrate in the right lung base in the mid left lung. Cannot exclude mass in the mid left lung. Electronically Signed: Nelson Wallace MD at 13:21 EDT , Service support , Medical Necessity - Tobacco Use Smoking Status: Former smoker Tobacco Use: Cigarettes Assessment/Plan Patient is an 82 years old female who was admitted on 09/15/17 for acute on chronic respiratory failure with underling pneumonia, COPD, and CHF. She was having recurrent hospitalization and ED visit for past 3 month with respiratory illness and anemia. She reports that she had multiple transfusion due to myelodysplastic disease. Also, she had pneumonia and upper respiratory infection, presents with fever of 102 this time with green discolored productive cough. She was started on Zosyn and vancomycin empirically, admitted to PCU. She reports that she had CT of chest, which was abnormal in [place] last month. She is not sure if there was instruction for follow up. She denied of any history of cancer in the past. 1. Acute on chronic hypoxic respiratory failure-multifactorial secondary to acute on chronic CHF and healthcare acquired pneumonia. Patient notes hospitalization for recurrent pneumonia and respiratory failure over the past few months in [place] where patient resides. Patient chronically wears supplemental oxygen. Continue supplemental oxygen to maintain O2 at or above 90 %. 2. Healthcare acquired pneumonia-negative for influenza. Blood cultures pending. Sputum culture sent, pending. Obtain urine for strep and Legionella. Patient was started on Zosyn and vancomycin in ER, continue. Albuterol and DuoNeb aerosols. IS/PEP. Mucinex 1200 mg p.o. twice daily. Tylenol as needed for fever. CTA of chest showed no evidence of PE. Severe fibrotic COPD. Small to moderate right pleural effusion. Probable infiltrate in the right lung base and the mid left lung. Infiltrate or mass noted in the right upper lobe measuring approximately 4.7 cm. Patient states a lung mass has been discussed with her at outside facility, however she is unaware of details. She was to continue follow-up with repeat imaging. Right mid lung lesion mentioned above is concerning. I had discussed in detail with patient regarding possibility of pathology including malignancy. Record from [place] was reviewed but no mentioning of CT chest. After discussing possible treatment plans, she thought that it would be best to do further work up at home in [place]. If she is more stable, she is planing to go back to home early next week. We sill see how she progress. 3. Acute on chronic CHF-unknown what subtype. Request records from facility in [place]. Patient believes her most recent EF was 45%. CT of chest as noted above. BNP on admission 409. Begin IV Lasix 40 mg twice daily. Strict I&O. Daily weight. 4. Paroxysmal atrial fibrillation-EKG in emergency room showed atrial fibrillation with a rate of 76. Patient reports she has history of atrial fibrillation. Not on anticoagulation due to history of GI bleed secondary to AVM. Continue metoprolol. Rate controlled. 5. COPD-no acute exacerbation. Albuterol and DuoNeb aerosols. Continue supplemental oxygen to maintain O2 at or above 90%. 6. CAD-continue statin, metoprolol. Not on aspirin given recent GI bleed. Troponin 0.06 on admission. 7. Hypertension-stable, continue home regimen of metoprolol, losartan, Lasix. 8. Hyperlipidemia-continue statin. 9. Chronic iron deficiency anemia-with recent blood loss anemia secondary to AVM. Colonoscopy in August at facility in [place] was reported to show AVM. Patient required blood transfusion at that time. She reported small amount of rectal bleeding the past few days. Continue to monitor. Monitor CBC. Continue home iron supplementation. 10. Pancytopenia secondary to myelodysplastic syndrome DVT prophylaxis-SCDs. Pharmacologic prophylaxis contraindicated due to recent GI bleed. Code status: DNR-CCA, patient states no CPR Code Visit Inpatient E&M: 08776 Subs Hosp L3
[2017-09-16] MEDS: MELATONIN 10 MG TABLET PO (22:15)
[2017-09-17] VITALS (18 sets, daily range): BP systolic 94–131; BP diastolic 48–71; PULSE 56–90; RESP 16–20; TEMP 36.4; O2SAT 96–100
[2017-09-17] MEDS: 0.9% NaCl Peripheral Flush Adult/Peds IV ×2 (03:03→17:27)
[2017-09-17] MEDS: Acetaminophen 325 MG Tablet 650 MG PO ×2 (03:21→21:44)
[2017-09-17] MEDS: Ipratropium/Albuterol Sulfate 3 ML AMPUL.NEB INHALATION ×5 (07:09→22:46)
[2017-09-17 07:44] LABS: Hematocrit 26.1 % (37-47); Hemoglobin 8.3 g/dl (12.0-15.0); Mean Corp Hgb Conc 31.8 g/gl (32-36); Mean Corpuscular Hgb 32.7 pg (27.0-32.0); Mean Corpuscular Volume 102.8 fL (81-99); Mean Platelet Vol. 10.5 fl (6.2-12.0); Platelet Count 42 K/mm3 (150-450); RBC Distribution Width CV 22.4 % (11.6-14.6); RBC Distribution Width SD 78.7 fl (35.1-43.9); Red Blood Count 2.54 M/mm3 (4.2-5.4); White Blood Count 2.6 K/mm3 (4.4-11.0)
[2017-09-17 07:48] LABS: Scan Indicated on CBC? Y/N YES- FLAGS NOTED
[2017-09-17 07:51] LABS: Anion Gap 8 (5-15); BUN 18 mg/dL (7-18); BUN/Creat Ratio 22.9 RATIO (10-20); Calcium,Total 7.8 mg/dL (8.5-10.1); Chloride 101 mmol/L (98-107); Creatinine, Serum 0.79 mg/dL (0.55-1.02); EST Glomerular Filtration Rate 74 mL/min (>60); Est Glom Filt Rate - Afr Amer 90 mL/min (>60); Estimated Creatinine Clearance 37.68 ml/min; Glucose 81 mg/dL (74-106); Potassium 3.3 mmol/L (3.5-5.1); Sodium Level 137 mmol/L (136-145)
[2017-09-17] MEDS: Ferrous Sulfate 325 MG Tablet PO (08:05)
[2017-09-17] MEDS: guaiFENesin 600 MG Tablet 1200 MG PO ×2 (11:05→21:41)
[2017-09-17] MEDS: Metoprolol(XL)Succ 50 MG Tablet PO (11:38)
--- NOTE | 2017-09-17 12:03 | NURSING ---
Notified primary RN
[2017-09-17] MEDS: Furosemide 40 MG/4 ML Vial IV (17:25)
--- NOTE | 2017-09-17 20:58 | PN_ITS ---
Subjective: She feels better today. She is afebrile, cough is better. Her son is here today. - Physical Exam General: Alert, Oriented x3 HEENT: Atraumatic, PERRLA, Normocephalic Oral: Moist Mucosa, No Gingival or Mucosal Lesions/ Ulcerations, Dry Mucosa Neck: Supple, No JVD, Negative Carotid Bruits, Negative Hepatojugular Reflux, No Nodes, No Nuchal Rigidity Lungs: No wheeze, No rales, Diminished Cardiovascular: Regular rate, Regular Rhythm, Normal S1, Normal S2, No murmurs, No Ectopic Activity Abdomen: Bowel Sounds Present, Soft, Non Tender, Non-Distended, No Hepato- splenomegaly Extremities: No clubbing, No cyanosis, No edema Skin: No rashes, No breakdown Musculoskeletal: No Tenderness to Palpation of Joints or Extremities, No Muscle Wasting Lymphatic: No Cervical, Supraclavicular, or Inguinal Adenopathy Neurological: Cranial nerves II-XII grossly intact, Neuro grossly intact Psych/Mental Status: Normal Affect - Physical Exam Vital Signs Temp Pulse Resp BP Pulse Ox 97.5 F L 56 L 18 131/62 H 100 09/17/17 16:15 09/17/17 19:21 09/17/17 19:21 09/17/17 16:15 09/17/17 16:15 Oxygen Flow Rate (L/min) 2.5 Oxygen Delivery Method Nasal Cannula Weight: 123 lb 7.342 oz Body Mass Index (BMI) 20.9 Intake and Output for Last 24 Hours 09/15/17 09/16/17 09/17/17 23:59 23:59 23:59 Intake Total 904 / 904 1223 / 1223 665.6 / 665.6 Output Total 1925 / 1925 800 / 800 Balance 904 / 904 -702 / -702 -134.4 / -134.4 Microbiology Past 72 Hours 09/15/17 19:20 Urine Culture - Preliminary Urine, Clean Catch Culture exhibits no growth. 09/15/17 19:20 Legionella Antigen - Final Urine, Clean Catch 09/15/17 19:20 Streptococcus pneumoniae Antigen (M - Final Urine, Clean Catch Laboratory Tests Past 24 Hrs 09/17/17 09/17/17 07:00 07:00 WBC 2.6 L RBC 2.54 L Hgb 8.3 L Hct 26.1 L MCV 102.8 H MCH 32.7 H MCHC 31.8 L RDW 22.4 H RDW Differential 78.7 H Plt Count 42 L* MPV 10.5 Differential Comment Sodium 137 Potassium 3.3 L Chloride 101 Carbon Dioxide 28.0 Anion Gap 8 BUN 18 Creatinine 0.79 Estim Creat Clear Calc 37.68 Est GFR (MDRD) Af Amer 90 Est GFR (MDRD) Non-Af 74 BUN/Creatinine Ratio 22.9 H Glucose 81 Calcium 7.8 L Medical Necessity - Tobacco Use Smoking Status: Former smoker Tobacco Use: Cigarettes Assessment/Plan Patient is an 82 years old female who was admitted on 09/15/17 for acute on chronic respiratory failure with underling pneumonia, COPD, and CHF. She was having recurrent hospitalization and ED visit for past 3 month with respiratory illness and anemia. She reports that she had multiple transfusion due to myelodysplastic disease. Also, she had pneumonia and upper respiratory infection, presents with fever of 102 this time with green discolored productive cough. She was started on Zosyn and vancomycin empirically, admitted to PCU. She reports that she had CT of chest, which was abnormal in [place] last month. She is not sure if there was instruction for follow up. She denied of any history of cancer in the past. 1. Acute on chronic hypoxic respiratory failure-multifactorial secondary to acute on chronic CHF and healthcare acquired pneumonia. Patient notes hospitalization for recurrent pneumonia and respiratory failure over the past few months in [place] where patient resides. Patient chronically wears supplemental oxygen. Continue supplemental oxygen to maintain O2 at or above 90 %. 2. Healthcare acquired pneumonia-negative for influenza. Blood cultures pending. Sputum culture sent, pending. Obtain urine for strep and Legionella. Patient was started on Zosyn and vancomycin in ER, continue. Albuterol and DuoNeb aerosols. IS/PEP. Mucinex 1200 mg p.o. twice daily. Tylenol as needed for fever. CTA of chest showed no evidence of PE. Severe fibrotic COPD. Small to moderate right pleural effusion. Probable infiltrate in the right lung base and the mid left lung. Infiltrate or mass noted in the right upper lobe measuring approximately 4.7 cm. Patient states a lung mass has been discussed with her at outside facility, however she is unaware of details. She was to continue follow-up with repeat imaging. Right mid lung lesion mentioned above is concerning. I had discussed in detail with patient regarding possibility of pathology including malignancy. Record from [place] was reviewed but no mentioning of CT chest. I had discussed with her son on 09/17. According to him, they are aware of density for some years, following the lesion regularly. However, it appears that she was admitted for pneumonia a couple of times in past few month which raises some questions. Patient and her son feel more comfortable to follow up with her regular physician for lung density. 3. Acute on chronic CHF, likely with mild to moderate systolic dysfunction- unknown what subtype. Request records from facility in [place]. Patient believes her most recent EF was 45%. CT of chest as noted above. BNP on admission 409. Begin IV Lasix 40 mg twice daily. Strict I&O. Daily weight. 4. Paroxysmal atrial fibrillation-EKG in emergency room showed atrial fibrillation with a rate of 76. Patient reports she has history of atrial fibrillation. Not on anticoagulation due to history of GI bleed secondary to AVM. Continue metoprolol. Rate controlled. 5. COPD-no acute exacerbation. Albuterol and DuoNeb aerosols. Continue supplemental oxygen to maintain O2 at or above 90%. 6. CAD-continue statin, metoprolol. Not on aspirin given recent GI bleed. Troponin 0.06 on admission. 7. Hypertension-stable, continue home regimen of metoprolol, losartan, Lasix. 8. Hyperlipidemia-continue statin. 9. Chronic iron deficiency anemia-with recent blood loss anemia secondary to AVM. Colonoscopy in August at facility in [place] was reported to show AVM. Patient required blood transfusion at that time. She reported small amount of rectal bleeding the past few days. Continue to monitor. Monitor CBC. Continue home iron supplementation. 10. Pancytopenia secondary to myelodysplastic syndrome DVT prophylaxis-SCDs. Pharmacologic prophylaxis contraindicated due to recent GI bleed. Code status: DNR-CCA, patient states no CPR Code Visit Inpatient E&M: 92481 Subs Hosp L3
[2017-09-17] MEDS: MELATONIN 10 MG TABLET PO (21:42)
[2017-09-18] VITALS (8 sets, daily range): BP systolic 97–113; BP diastolic 47–58; PULSE 65–75; RESP 16–18; TEMP 36.2–36.6; O2SAT 92–99
[2017-09-18] MEDS: Ipratropium/Albuterol Sulfate 3 ML AMPUL.NEB INHALATION (02:50)
[2017-09-18 06:53] LABS: Hematocrit 26.6 % (37-47); Hemoglobin 8.4 g/dl (12.0-15.0); Mean Corp Hgb Conc 31.6 g/gl (32-36); Mean Corpuscular Hgb 32.9 pg (27.0-32.0); Mean Corpuscular Volume 104.3 fL (81-99); Mean Platelet Vol. 11.2 fl (6.2-12.0); Platelet Count 52 K/mm3 (150-450); RBC Distribution Width CV 22.3 % (11.6-14.6); RBC Distribution Width SD 79.7 fl (35.1-43.9); Red Blood Count 2.55 M/mm3 (4.2-5.4); White Blood Count 2.6 K/mm3 (4.4-11.0)
[2017-09-18 06:54] LABS: Scan Indicated on CBC? Y/N YES- FLAGS NOTED
[2017-09-18 07:08] LABS: Anion Gap 6 (5-15); BUN 21 mg/dL (7-18); BUN/Creat Ratio 24.6 RATIO (10-20); Calcium,Total 8.1 mg/dL (8.5-10.1); Chloride 103 mmol/L (98-107); Creatinine, Serum 0.85 mg/dL (0.55-1.02); EST Glomerular Filtration Rate 67 mL/min (>60); Est Glom Filt Rate - Afr Amer 82 mL/min (>60); Estimated Creatinine Clearance 43.54 ml/min; Glucose 91 mg/dL (74-106); Potassium 3.8 mmol/L (3.5-5.1); Sodium Level 140 mmol/L (136-145)
[2017-09-18 07:19] LABS: Differential Comment SCAN
[2017-09-18] MEDS: Ferrous Sulfate 325 MG Tablet PO (08:11)
[2017-09-18] MEDS: guaiFENesin 600 MG Tablet 1200 MG PO (09:10)
[2017-09-18] MEDS: Metoprolol(XL)Succ 50 MG Tablet PO (09:10)
[2017-09-18] MEDS: Losartan Potassium 100 MG Tablet PO (09:10)
[2017-09-18] MEDS: Furosemide 40 MG/4 ML Vial IV (09:11)
[2017-09-18] MEDS: 0.9% NaCl Peripheral Flush Adult/Peds IV (09:11)
--- NOTE | 2017-09-18 14:12 | PCM.DC ---
- Discharge Diagnoses Current Active Problems: Current Active and Chronic Problems MDS (myelodysplastic syndrome) (Chronic) COPD (chronic obstructive pulmonary disease) (Chronic) CAD (coronary artery disease) (Chronic) HTN (hypertension) (Chronic) HLD (hyperlipidemia) (Chronic) Anemia (Chronic) Atrial fibrillation (Chronic) CHF (congestive heart failure) (Chronic) You will use the following diet at home:: No restrictions Your food should be the consistency of: Regular Discharge Activity: Return to Normal Activity Allergies/Adverse Reactions: Allergies TAPE Allergy (Uncoded 09/15/17 10:56) Unknown Medications to take at Discharge Albuterol Inhaler [Ventolin Hfa] 1 puff INHALATION Q6H PRN PRN 09/15/17 Ferrous Sulfate 324 mg PO DAILY 09/15/17 Furosemide [Lasix] 20 mg PO DAILY 09/15/17 Ipratropium/Albuterol Respimat [Combivent Respimat Inhal [place]] 1 puff INHALATION BID 09/15/17 Losartan Potassium 100 mg PO DAILY 09/15/17 Metoprolol Succinate 50 mg PO DAILY 09/15/17 Rosuvastatin Calcium [Crestor] 10 mg PO QODAY 09/15/17 Tiotropium Br/Olodaterol HCl [Stiolto Respimat Inhal [place]] 2 puff IH DAILY 09/15/17 Amoxicillin/Potassium Clav [Augmentin 875-125 Tablet] 1 ea PO BID #12 tab 09/18/17 Guaifenesin [Mucinex] 1,200 mg PO BID tablet 09/18/17 The following prescriptions were given: Amoxicillin/Potassium Clav [Augmentin 875-125 Tablet] 1 ea PO BID #12 tab Primary Care Physician: [facility] Doctor,Out of [Primary Care Provider] - Please follow up with your Primary Care Physician in: Follow up with regular primary care physician at home [facility].
--- NOTE | 2017-09-18 14:13 | PCM.DC.SUM ---
Discharge Date and Diagnosis - Problem List Patient Problems: Active and Suspected Problems Pneumonia (Acute) Date of Admission: 09/15/17 Date of Discharge: 09/18/17 - Primary Discharge Diagnosis Pneumonia, organism unknown. - Secondary Discharge Diagnosis Chronic Problems MDS (myelodysplastic syndrome) (Chronic) COPD (chronic obstructive pulmonary disease) (Chronic) CAD (coronary artery disease) (Chronic) HTN (hypertension) (Chronic) HLD (hyperlipidemia) (Chronic) Anemia (Chronic) Atrial fibrillation (Chronic) CHF (congestive heart failure) (Chronic) Chronic respiratory failure with home oxygen. Hospital Course and Treatment Imaging Results: Diagnostic Data Chest X-Ray 09/15/17 11:07 IMPRESSION: COPD. Interstitial prominence which could be fibrosis and/or congestion/edema. Focal density in the mid left lung which or mass is possible and CT scan with contrast is recommended. Electronically Signed: Nelson Wallace MD at 11:46 EDT , Service support , Chest CTA 09/15/17 12:11 IMPRESSION: No evidence for PE. Severe fibrotic COPD. [id number] right pleural effusion. Probable infiltrate in the right lung base in the mid left lung. Cannot exclude mass in the mid left lung. Electronically Signed: Nelson Wallace MD at 13:21 EDT , Service support , Work Distributor: none. Operations: None Procedures: None Summary of Care Provided: Patient is an 82 years old female who was admitted on 09/15/17 for acute on chronic respiratory failure with underling pneumonia, COPD, and CHF. She was having recurrent hospitalization and ED visit for past 3 month with respiratory illness and anemia. She reports that she had multiple transfusion due to myelodysplastic disease. Also, she had pneumonia and upper respiratory infection, presents with fever of 102 this time with green discolored productive cough. She was started on Zosyn and vancomycin empirically, admitted to PCU. She reports that she had CT of chest, which was abnormal in [place] last month. She is not sure if there was instruction for follow up. She denied of any history of cancer in the past. 1. Acute on chronic hypoxic respiratory failure-multifactorial secondary to acute on chronic CHF and healthcare acquired pneumonia. Patient notes hospitalization for recurrent pneumonia and respiratory failure over the past few months in [place] where patient resides. Patient chronically wears supplemental oxygen. Continue supplemental oxygen to maintain O2 at or above 90%. 2. Healthcare acquired pneumonia-negative for influenza. Blood cultures pending. Sputum culture sent, pending. Obtain urine for strep and Legionella. Patient was started on Zosyn and vancomycin in ER, continue. Albuterol and DuoNeb aerosols. IS/PEP. Mucinex 1200 mg p.o. twice daily. Tylenol as needed for fever. CTA of chest showed no evidence of PE. Severe fibrotic COPD. Small to moderate right pleural effusion. Probable infiltrate in the right lung base and the mid left lung. Infiltrate or mass noted in the right upper lobe measuring approximately 4.7 cm. Patient states a lung mass has been discussed with her at outside facility, however she is unaware of details. She was to continue follow-up with repeat imaging. Right mid lung lesion mentioned above is concerning. I had discussed in detail with patient regarding possibility of pathology including malignancy. Record from [place] was reviewed but no mentioning of CT chest. I had discussed with her son on 09/17. According to him, they are aware of density for some years, following the lesion regularly. However, it appears that she was admitted for pneumonia a couple of times in past few month which raises some questions. Patient and her son feel more comfortable to follow up with her regular physician for lung density. On 09/18, she is doing better. Cough has improved. Lungs are mostly clear except for some rales at bases. Plan to discharge to home with Augmentin 875 mg po bid for 6 days to complete total of 10 days abx. 3. Acute on chronic CHF, likely with mild to moderate systolic dysfunction-unknown what subtype. Request records from facility in [place]. Patient believes her most recent EF was 45%. CT of chest as noted above. BNP on admission 409. Begin IV Lasix 40 mg twice daily. Strict I&O. Daily weight. 4. Paroxysmal atrial fibrillation-EKG in emergency room showed atrial fibrillation with a rate of 76. Patient reports she has history of atrial fibrillation. Not on anticoagulation due to history of GI bleed secondary to AVM. Continue metoprolol. Rate controlled. 5. COPD-no acute exacerbation. Albuterol and DuoNeb aerosols. Continue supplemental oxygen to maintain O2 at or above 90%. 6. CAD-continue statin, metoprolol. Not on aspirin given recent GI bleed. Troponin 0.06 on admission. 7. Hypertension-stable, continue home regimen of metoprolol, losartan, Lasix. 8. Hyperlipidemia-continue statin. 9. Chronic iron deficiency anemia-with recent blood loss anemia secondary to AVM. Colonoscopy in August at facility in [place] was reported to show AVM. Patient required blood transfusion at that time. She reported small amount of rectal bleeding the past few days. Continue to monitor. Monitor CBC. Continue home iron supplementation. 10. Pancytopenia secondary to myelodysplastic syndrome 11. Chronic respiratory failure with home oxygen use. Code status: DNR-CCA Disposition: discharge to home. Discharge Diet: No Restrictions Discharge Activity: Return to Normal Activity Home Medications: Medications to take at Discharge Albuterol Inhaler [Ventolin Hfa] 1 puff INHALATION Q6H PRN PRN 09/15/17 Ferrous Sulfate 324 mg PO DAILY 09/15/17 Furosemide [Lasix] 20 mg PO DAILY 09/15/17 Ipratropium/Albuterol Respimat [Combivent Respimat Inhal [place]] 1 puff INHALATION BID 09/15/17 Losartan Potassium 100 mg PO DAILY 09/15/17 Metoprolol Succinate 50 mg PO DAILY 09/15/17 Rosuvastatin Calcium [Crestor] 10 mg PO QODAY 09/15/17 Tiotropium Br/Olodaterol HCl [Stiolto Respimat Inhal [place]] 2 puff IH DAILY 09/15/17 Amoxicillin/Potassium Clav [Augmentin 875-125 Tablet] 1 ea PO BID #12 tab 09/18/17 Guaifenesin [Mucinex] 1,200 mg PO BID tablet 09/18/17 Following Prescrptions Were Given to Patient: Amoxicillin/Potassium Clav [Augmentin 875-125 Tablet] 1 ea PO BID #12 tab Primary Care Physician: [facility] Doctor,Out of [Primary Care Provider] - Please follow up with your Primary Care Physician in: Follow up with regular primary care physician at home [facility]. Disposition: Home Patient Condition:: Good Medical Necessity - Tobacco Use Smoking Status: Former smoker Tobacco Use: Cigarettes Meaningful Use Info Meaningful Use Diagnoses (Choose all that apply): None applicable Code Visit Inpatient E&M: 62845 Disch Hosp
--- NOTE | 2017-09-18 14:17 | DS.PCM_ITS ---
Discharge Date and Diagnosis - Problem List Patient Problems: Active and Suspected Problems Pneumonia (Acute) Date of Admission: 09/15/17 Date of Discharge: 09/18/17 - Primary Discharge Diagnosis Pneumonia, organism unknown. - Secondary Discharge Diagnosis Chronic Problems MDS (myelodysplastic syndrome) (Chronic) COPD (chronic obstructive pulmonary disease) (Chronic) CAD (coronary artery disease) (Chronic) HTN (hypertension) (Chronic) HLD (hyperlipidemia) (Chronic) Anemia (Chronic) Atrial fibrillation (Chronic) CHF (congestive heart failure) (Chronic) Chronic respiratory failure with home oxygen. Hospital Course and Treatment Imaging Results: Diagnostic Data Chest X-Ray 09/15/17 11:07 IMPRESSION: COPD. Interstitial prominence which could be fibrosis and/or congestion/edema. Focal density in the mid left lung which or mass is possible and CT scan with contrast is recommended. Electronically Signed: Nelson Wallace MD at 11:46 EDT , Service support , Chest CTA 09/15/17 12:11 IMPRESSION: No evidence for PE. Severe fibrotic COPD. [id number] right pleural effusion. Probable infiltrate in the right lung base in the mid left lung. Cannot exclude mass in the mid left lung. Electronically Signed: Nelson Wallace MD at 13:21 EDT , Service support , Information Technology Project Manager: none. Operations: None Procedures: None Summary of Care Provided: Patient is an 82 years old female who was admitted on 09/15/17 for acute on chronic respiratory failure with underling pneumonia, COPD, and CHF. She was having recurrent hospitalization and ED visit for past 3 month with respiratory illness and anemia. She reports that she had multiple transfusion due to myelodysplastic disease. Also, she had pneumonia and upper respiratory infection, presents with fever of 102 this time with green discolored productive cough. She was started on Zosyn and vancomycin empirically, admitted to PCU. She reports that she had CT of chest, which was abnormal in [place] last month. She is not sure if there was instruction for follow up. She denied of any history of cancer in the past. 1. Acute on chronic hypoxic respiratory failure-multifactorial secondary to acute on chronic CHF and healthcare acquired pneumonia. Patient notes hospitalization for recurrent pneumonia and respiratory failure over the past few months in [place] where patient resides. Patient chronically wears supplemental oxygen. Continue supplemental oxygen to maintain O2 at or above 90 %. 2. Healthcare acquired pneumonia-negative for influenza. Blood cultures pending. Sputum culture sent, pending. Obtain urine for strep and Legionella. Patient was started on Zosyn and vancomycin in ER, continue. Albuterol and DuoNeb aerosols. IS/PEP. Mucinex 1200 mg p.o. twice daily. Tylenol as needed for fever. CTA of chest showed no evidence of PE. Severe fibrotic COPD. Small to moderate right pleural effusion. Probable infiltrate in the right lung base and the mid left lung. Infiltrate or mass noted in the right upper lobe measuring approximately 4.7 cm. Patient states a lung mass has been discussed with her at outside facility, however she is unaware of details. She was to continue follow-up with repeat imaging. Right mid lung lesion mentioned above is concerning. I had discussed in detail with patient regarding possibility of pathology including malignancy. Record from [place] was reviewed but no mentioning of CT chest. I had discussed with her son on 09/17. According to him, they are aware of density for some years, following the lesion regularly. However, it appears that she was admitted for pneumonia a couple of times in past few month which raises some questions. Patient and her son feel more comfortable to follow up with her regular physician for lung density. On 09/18, she is doing better. Cough has improved. Lungs are mostly clear except for some rales at bases. Plan to discharge to home with Augmentin 875 mg po bid for 6 days to complete total of 10 days abx. 3. Acute on chronic CHF, likely with mild to moderate systolic dysfunction- unknown what subtype. Request records from facility in [place]. Patient believes her most recent EF was 45%. CT of chest as noted above. BNP on admission 409. Begin IV Lasix 40 mg twice daily. Strict I&O. Daily weight. 4. Paroxysmal atrial fibrillation-EKG in emergency room showed atrial fibrillation with a rate of 76. Patient reports she has history of atrial fibrillation. Not on anticoagulation due to history of GI bleed secondary to AVM. Continue metoprolol. Rate controlled. 5. COPD-no acute exacerbation. Albuterol and DuoNeb aerosols. Continue supplemental oxygen to maintain O2 at or above 90%. 6. CAD-continue statin, metoprolol. Not on aspirin given recent GI bleed. Troponin 0.06 on admission. 7. Hypertension-stable, continue home regimen of metoprolol, losartan, Lasix. 8. Hyperlipidemia-continue statin. 9. Chronic iron deficiency anemia-with recent blood loss anemia secondary to AVM. Colonoscopy in August at facility in [place] was reported to show AVM. Patient required blood transfusion at that time. She reported small amount of rectal bleeding the past few days. Continue to monitor. Monitor CBC. Continue home iron supplementation. 10. Pancytopenia secondary to myelodysplastic syndrome 11. Chronic respiratory failure with home oxygen use. Code status: DNR-CCA Disposition: discharge to home. Discharge Diet: No Restrictions Discharge Activity: Return to Normal Activity Home Medications: Medications to take at Discharge Albuterol Inhaler [Ventolin Hfa] 1 puff INHALATION Q6H PRN PRN 09/15/17 Ferrous Sulfate 324 mg PO DAILY 09/15/17 Furosemide [Lasix] 20 mg PO DAILY 09/15/17 Ipratropium/Albuterol Respimat [Combivent Respimat Inhal [place]] 1 puff INHALATION BID 09/15/17 Losartan Potassium 100 mg PO DAILY 09/15/17 Metoprolol Succinate 50 mg PO DAILY 09/15/17 Rosuvastatin Calcium [Crestor] 10 mg PO QODAY 09/15/17 Tiotropium Br/Olodaterol HCl [Stiolto Respimat Inhal [place]] 2 puff IH DAILY 05/23 Amoxicillin/Potassium Clav [Augmentin 875-125 Tablet] 1 ea PO BID #12 tab Guaifenesin [Mucinex] 1,200 mg PO BID tablet 09/18/17 Following Prescrptions Were Given to Patient: Amoxicillin/Potassium Clav [Augmentin 875-125 Tablet] 1 ea PO BID #12 tab Primary Care Physician: [facility] Doctor,Out of [Primary Care Provider] - Please follow up with your Primary Care Physician in: Follow up with regular primary care physician at home [facility]. Disposition: Home Patient Condition:: Good Medical Necessity - Tobacco Use Smoking Status: Former smoker Tobacco Use: Cigarettes Meaningful Use Info Meaningful Use Diagnoses (Choose all that apply): None applicable Code Visit Inpatient E&M: 93883 Disch Hosp
[2017-09-19 10:07] LABS: Pathologist Review Reviewed
[2017-09-19 10:26] LABS: Pathologist Review Reviewed
== END 2017-09-18 15:50 | disposition home or self-care (01) | DRG 193 ==
LOC: ED 13:12 → PCU 14:41
PROVIDERS: Family Medicine; Nurse Practitioner Family; Admitting Provider Internal Medicine; Emergency Provider Emergency Medicine; Visit Provider Hospitalist
DX: J18.9 Pneumonia, unspecified organism (principal); J96.21 Acute and chronic respiratory failure with hypoxia; I50.23 Acute on chronic systolic (congestive) heart failure; J96.10 Chronic respiratory failure, unspecified whether with hypoxia or hypercapnia; I11.0 Hypertensive heart disease with heart failure; D46.9 Myelodysplastic syndrome, unspecified; I25.10 Atherosclerotic heart disease of native coronary artery without angina pectoris; J44.9 Chronic obstructive pulmonary disease, unspecified; E78.5 Hyperlipidemia, unspecified; I48.0 Paroxysmal atrial fibrillation; D50.9 Iron deficiency anemia, unspecified; Z87.891 Personal history of nicotine dependence; Z99.81 Dependence on supplemental oxygen; Z66 Do not resuscitate
CPT/HCPCS: 36415; 71045; 71275; 80048; 80202; 83605; 83735; 83880; 84484; 85025; 85027; 85610; 85730; 87040; 87070; 87086; 87205; 87449; 87804; 93005; 94640; 94667; 94668; 94762; 99285; J7030; Q9967; A4216; J1940; J3490